=== PATIENT | male | born 1955 | race Caucasian/White ===

== ENCOUNTER → 2017-05-23 | Outpatient (CLI) | payer OTHER ==
--- NOTE | 2017-05-23 13:01 | XR ---
EXAMINATION TYPE: XR chest 2V DATE OF EXAM: 05/23/2017 COMPARISON: NONE HISTORY: Abnormal weight loss TECHNIQUE: Frontal and lateral views of the chest are obtained. FINDINGS: Questionable irregular soft tissue density seen between the anterior second and third ribs on the right. There is no pleural effusion, or pneumothorax seen. The cardiac silhouette size is wit hin normal limits. Prominent lung volume may be indicative of underlying COPD. The osseous structures are intact. IMPRESSION: Difficult to exclude right upper lobe lung mass. Recommend chest CT. A Yellow message has been communicated to Lula Kate MD via the [employer]ave[employer] system on 05/23/2017 12:58 PM, Message ID [id number].
== END | disposition home or self-care (01) ==
LOC: RADXRMAIN 12:21
PROVIDERS: ATTEND Family Medicine
DX: R63.4 Abnormal weight loss (principal); Z72.0 Tobacco use
CPT/HCPCS: 71020